=== PATIENT | female | born 1965 | race Caucasian/White ===

== ENCOUNTER 2022-02-24 20:57 | Inpatient (IN) ==
[2022-02-25] MEDS: Acetaminophen 325 MG TABLET PO PRN ×2 (12:09→20:33)
[2022-02-25] MEDS ORDERED: *HR* HYDROcodone/Acet 5/325 mg TABLET PO PRN (14:08)
[2022-02-25] MEDS ORDERED: Naloxone 0.4 MG/ML INJ IVP PRN (14:08)
[2022-02-25] MEDS ORDERED: Ipratropium/Albuterol Neb 3 ML IH PRN (14:57)
[2022-02-25] MEDS ORDERED: Dextrose Gel 15 GM/37.5 ML TUBE PO PRN ×2 (14:59)
[2022-02-25] MEDS ORDERED: D5% in Water 1,000 ML IVC PRN (14:59)
[2022-02-25] MEDS ORDERED: *HR* Dextrose 50 % in Water (Syg) 50 ML SYRINGE IVP PRN (14:59)
[2022-02-25] MEDS ORDERED: Perflutren Lipid Microsphere 1.3 ML in 0.9 % Sodium Chloride 8.7 ML IVP PRN (15:09)
[2022-02-25] MEDS: Vancomycin 2,000 MG/520 ML IV.SOLN IVPB SCH (15:51)
[2022-02-25] MEDS: Piperacillin/Tazobactam 3.375 GM in 0.9 % Sodium Chloride Mini Bag 100 ML IVPB SCH ×2 (15:52→23:33)
[2022-02-25 16:29] LABS: Basophils # 0.1 K/mcL (0.0-0.2); Basophils % 0.4 %; Eosinophils % 0.1 %; Hematocrit 36.8 % (35.3-44.9); Hemoglobin 10.8 g/dL (11.5-15.4); Immature Granulocytes % 0.4 % (0-4); Lymphocytes # 0.8 K/mcL (0.6-4.6); Lymphocytes % 5.5 %; Mean Corpuscular HGB Conc 29.3 g/dL (31.6-35.5); Mean Corpuscular Hemoglobin 28.1 pg (28.0-33.3); Mean Corpuscular Volume 95.6 fL (83.0-100.0); Mean Platelet Volume 11.9 fL (9.4-12.4); Monocytes # 0.5 K/mcL (0.0-1.3); Monocytes % 3.6 %; Neutrophils # 13.1 K/mcL (1.6-8.9); Platelet Count 158 K/mcL (140-400); Red Blood Count 3.85 M/mcL (3.82-4.97); Red Cell Distribution Width 16.5 % (11.5-14.5); White Blood Count 14.5 K/mcL (4.3-11.1)
[2022-02-25 16:59] LABS: Alanine Aminotransferase 36 Units/L (7-52); Albumin 3.3 g/dL (3.5-5.7); Albumin/Globulin Ratio 1.1 (1.1-2.2); Alkaline Phosphatase 64 Units/L (34-104); Aspartate Amino Transferase 37 Units/L (13-39); BUN/Creatinine Ratio 29 (6-26); Bilirubin,Total 1.1 mg/dL (0.3-1.0); Blood Urea Nitrogen 22 mg/dL (6-20); Calcium 9.3 mg/dL (8.6-10.3); Carbon Dioxide 40 mEq/L (23-29); Chloride 96 mEq/L (98-107); Globulin 2.9 g/dL (2.4-3.5); Glucose 193 mg/dL (70-105); Osmolality,Calculated 299 (280-300); Potassium 3.6 mEq/L (3.5-5.1); Sodium 140 mEq/L (136-145); Total Protein 6.2 g/dL (6.4-8.9); eGFR For African Americans > 60 (> 60); eGFR For Non-African Americans > 60 (> 60)
[2022-02-25] MEDS: Insulin LISPRO 300 UNITS/3 ML VIAL SUBQ SCH ×2 (17:12→20:34)
[2022-02-25] MEDS ORDERED: Warfarin perPT PO PRN (18:00)
[2022-02-25 18:03] LABS: INR 1.6; Prothrombin Time 18.1 Seconds (9.4-12.1)
[2022-02-25] MEDS ORDERED: *HR* Warfarin 3 MG TABLET PO ONE (19:45)
[2022-02-25] MEDS: Insulin DETEMIR 100 UNIT/ML X5UNITS SUBQ SCH (20:34)
[2022-02-26 02:55] LABS: Basophils % 0.4 %; Lymphocytes % 6.2 %; Monocytes % 4.9 %
[2022-02-26 02:57] LABS: Basophils # 0.1 K/mcL (0.0-0.2); Eosinophils # 0.1 K/mcL (0.0-0.6); Eosinophils % 0.8 %; Hematocrit 37.8 % (35.3-44.9); Hemoglobin 10.9 g/dL (11.5-15.4); Immature Granulocytes % 0.4 % (0-4); Immature Platelets 16.4 % (1.1-6.1); Lymphocytes # 0.8 K/mcL (0.6-4.6); Mean Corpuscular HGB Conc 28.8 g/dL (31.6-35.5); Mean Corpuscular Hemoglobin 28.2 pg (28.0-33.3); Mean Corpuscular Volume 97.7 fL (83.0-100.0); Mean Platelet Volume 12.1 fL (9.4-12.4); Monocytes # 0.7 K/mcL (0.0-1.3); Neutrophils # 11.9 K/mcL (1.6-8.9); Platelet Count 144 K/mcL (140-400); Red Blood Count 3.87 M/mcL (3.82-4.97); Red Cell Distribution Width 16.4 % (11.5-14.5); Segmented Neutrophils % 87.3 %; White Blood Count 13.6 K/mcL (4.3-11.1)
[2022-02-26 03:07] LABS: INR 1.4; Prothrombin Time 16.1 Seconds (9.4-12.1)
[2022-02-26 03:18] LABS: Alanine Aminotransferase 33 Units/L (7-52); Albumin 3.1 g/dL (3.5-5.7); Alkaline Phosphatase 64 Units/L (34-104); Aspartate Amino Transferase 33 Units/L (13-39); BUN/Creatinine Ratio 24 (6-26); Bilirubin,Total 0.9 mg/dL (0.3-1.0); Blood Urea Nitrogen 21 mg/dL (6-20); Calcium 9.1 mg/dL (8.6-10.3); Carbon Dioxide 38 mEq/L (23-29); Chloride 96 mEq/L (98-107); Globulin 3.2 g/dL (2.4-3.5); Glucose 178 mg/dL (70-105); Osmolality,Calculated 297 (280-300); Potassium 3.7 mEq/L (3.5-5.1); Sodium 140 mEq/L (136-145); Total Protein 6.3 g/dL (6.4-8.9); eGFR For African Americans > 60 (> 60); eGFR For Non-African Americans > 60 (> 60)
[2022-02-26] MEDS: Vancomycin 2,000 MG/520 ML IV.SOLN IVPB SCH ×2 (03:25→15:33)
[2022-02-26] MEDS ORDERED: Fluticasone Propionate Nasal 50 MCG/SPRAY BOTTLE NS PRN (07:54)
[2022-02-26 09:12] LABS: C-Reactive Protein > 300 mg/L (Less than 10)
[2022-02-26] MEDS: Insulin LISPRO 300 UNITS/3 ML VIAL SUBQ SCH ×4 (10:14→20:38)
[2022-02-26] MEDS: Cholecalciferol (D-3) 1,000 UNIT (25MCG) TABLET PO SCH (10:16)
[2022-02-26] MEDS: Cyanocobalamin (B-12) 1,000 MCG TABLET PO SCH (10:17)
[2022-02-26] MEDS: Gabapentin 300 MG CAPSULE PO SCH (10:17)
[2022-02-26] MEDS: Torsemide 20 MG TABLET PO SCH (10:17)
[2022-02-26] MEDS: Piperacillin/Tazobactam 3.375 GM in 0.9 % Sodium Chloride Mini Bag 100 ML IVPB SCH ×3 (10:18→23:17)
[2022-02-26] MEDS: Budesonide/Formoterol 160/4.5 1 PUFF INH IH SCH ×2 (10:49→19:54)
[2022-02-26] MEDS: Acetaminophen 325 MG TABLET PO PRN (17:44)
[2022-02-26] MEDS ORDERED: *HR* Warfarin 3 MG TABLET PO ONE (18:00)
[2022-02-26] MEDS: Insulin DETEMIR 100 UNIT/ML X5UNITS SUBQ SCH (20:38)
[2022-02-27] MEDS: Vancomycin 2,000 MG/520 ML IV.SOLN IVPB SCH (03:05)
[2022-02-27 03:28] LABS: Basophils % 0.6 %; Immature Granulocytes % 0.5 % (0-4)
[2022-02-27 03:30] LABS: Basophils # 0.1 K/mcL (0.0-0.2); Eosinophils # 0.2 K/mcL (0.0-0.6); Eosinophils % 1.9 %; Hematocrit 40.8 % (35.3-44.9); Hemoglobin 11.5 g/dL (11.5-15.4); Lymphocytes # 0.6 K/mcL (0.6-4.6); Mean Corpuscular HGB Conc 28.2 g/dL (31.6-35.5); Mean Corpuscular Volume 99.5 fL (83.0-100.0); Monocytes # 0.6 K/mcL (0.0-1.3); Monocytes % 6.3 %; Neutrophils # 8.2 K/mcL (1.6-8.9); Red Cell Distribution Width 16.2 % (11.5-14.5); Segmented Neutrophils % 84.7 %; White Blood Count 9.7 K/mcL (4.3-11.1)
[2022-02-27 04:52] LABS: BUN/Creatinine Ratio 24 (6-26); Blood Urea Nitrogen 21 mg/dL (6-20); Calcium 9.3 mg/dL (8.6-10.3); Carbon Dioxide 28 mEq/L (23-29); Chloride 97 mEq/L (98-107); Glucose 213 mg/dL (70-105); Magnesium 1.8 mg/dL (1.6-2.6); Osmolality,Calculated 295 (280-300); Phosphorous 2.8 mg/dL (2.7-4.5); Potassium 4.4 mEq/L (3.5-5.1); Sodium 138 mEq/L (136-145); eGFR For African Americans > 60 (> 60); eGFR For Non-African Americans > 60 (> 60)
[2022-02-27 06:05] LABS: Hypochromasia Present (Not Present)
[2022-02-27 06:13] LABS: Mean Platelet Volume 10.6 fL (9.4-12.4)
[2022-02-27 06:17] LABS: INR 1.7; Prothrombin Time 19.4 Seconds (9.4-12.1)
[2022-02-27] MEDS: Budesonide/Formoterol 160/4.5 1 PUFF INH IH SCH ×2 (07:12→20:27)
[2022-02-27] MEDS: Gabapentin 300 MG CAPSULE PO SCH (10:18)
[2022-02-27] MEDS: Torsemide 20 MG TABLET PO SCH (10:19)
[2022-02-27] MEDS: Cholecalciferol (D-3) 1,000 UNIT (25MCG) TABLET PO SCH (10:19)
[2022-02-27] MEDS: Cyanocobalamin (B-12) 1,000 MCG TABLET PO SCH (10:19)
[2022-02-27] MEDS: Insulin LISPRO 300 UNITS/3 ML VIAL SUBQ SCH ×4 (11:14→20:59)
[2022-02-27] MEDS: Piperacillin/Tazobactam 3.375 GM in 0.9 % Sodium Chloride Mini Bag 100 ML IVPB SCH ×2 (12:28→20:49)
[2022-02-27] MEDS ORDERED: *HR* Warfarin 3 MG TABLET PO ONE (18:00)
[2022-02-27] MEDS: Insulin DETEMIR 100 UNIT/ML X5UNITS SUBQ SCH (20:50)
[2022-02-28] MEDS ORDERED: Vancomycin 1,750 MG/517.5 ML IV.SOLN IVPB SCH (03:00)
[2022-02-28] MEDS: Piperacillin/Tazobactam 3.375 GM in 0.9 % Sodium Chloride Mini Bag 100 ML IVPB SCH (05:42)
[2022-02-28] MEDS: Doxycycline 100 MG CAPSULE PO SCH ×2 (07:48→21:00)
[2022-02-28] MEDS: Insulin LISPRO 300 UNITS/3 ML VIAL SUBQ SCH ×4 (07:48→20:59)
[2022-02-28] MEDS: Cyanocobalamin (B-12) 1,000 MCG TABLET PO SCH (07:48)
[2022-02-28] MEDS: Torsemide 20 MG TABLET PO SCH (07:48)
[2022-02-28] MEDS: Cholecalciferol (D-3) 1,000 UNIT (25MCG) TABLET PO SCH (07:48)
[2022-02-28] MEDS: Gabapentin 300 MG CAPSULE PO SCH (07:48)
[2022-02-28] MEDS: Budesonide/Formoterol 160/4.5 1 PUFF INH IH SCH ×2 (08:14→21:48)
[2022-02-28 08:40] LABS: ABG Base Excess 14 mEq/L (-2 to 3); ABG HCO3 44 mEq/L (21-27); ABG Oxygen Saturation 95 % (95-98); ABG PCO2 96 mmHg (35-45); ABG PH 7.27 pH Units (7.32-7.45); ABG PO2 95 mmHg (85-104); ABG TCO2 47 mEq/L (20-26); Blood Gas Modality AVAPS; Blood Gas VT 500 cc
[2022-02-28 10:14] LABS: ABG Base Excess 10 mEq/L (-2 to 3); ABG HCO3 40 mEq/L (21-27); ABG Oxygen Saturation 95 % (95-98); ABG PCO2 94 mmHg (35-45); ABG PH 7.24 pH Units (7.32-7.45); ABG PO2 98 mmHg (85-104); ABG TCO2 43 mEq/L (20-26); Blood Gas Modality AVAPS; Blood Gas VT 500 cc
[2022-02-28 13:32] LABS: ABG Base Excess 13 mEq/L (-2 to 3); ABG HCO3 44 mEq/L (21-27); ABG Oxygen Saturation 90 % (95-98); ABG PCO2 100 mmHg (35-45); ABG PH 7.25 pH Units (7.32-7.45); ABG PO2 73 mmHg (85-104); ABG TCO2 47 mEq/L (20-26); Blood Gas Modality AVAPS; Blood Gas VT 500 cc
[2022-02-28 13:48] LABS: Mean Corpuscular Hemoglobin 27.7 pg (28.0-33.3)
[2022-02-28 13:49] LABS: Eosinophils # 0.1 K/mcL (0.0-0.6); Hematocrit 35.7 % (35.3-44.9); Mean Corpuscular Volume 98.9 fL (83.0-100.0); Mean Platelet Volume 11.1 fL (9.4-12.4); Platelet Count 177 K/mcL (140-400); Red Blood Count 3.61 M/mcL (3.82-4.97); White Blood Count 6.4 K/mcL (4.3-11.1)
[2022-02-28 13:55] LABS: INR 2.2; Prothrombin Time 24.4 Seconds (9.4-12.1)
[2022-02-28 14:07] LABS: BUN/Creatinine Ratio 29 (6-26); Blood Urea Nitrogen 19 mg/dL (6-20); C-Reactive Protein 165 mg/L (Less than 10); Calcium 9.2 mg/dL (8.6-10.3); Carbon Dioxide 42 mEq/L (23-29); Chloride 98 mEq/L (98-107); Glucose 203 mg/dL (70-105); Magnesium 1.7 mg/dL (1.6-2.6); Osmolality,Calculated 302 (280-300); Phosphorous 2.5 mg/dL (2.7-4.5); Potassium 4.2 mEq/L (3.5-5.1); Sodium 142 mEq/L (136-145); eGFR For African Americans > 60 (> 60); eGFR For Non-African Americans > 60 (> 60)
[2022-02-28 16:04] LABS: Basophils # 0.3 K/mcL (0.0-0.2); Lymphocytes # 0.1 K/mcL (0.6-4.6); Monocytes # 0.9 K/mcL (0.0-1.3)
[2022-02-28 16:11] LABS: Anisocytosis 1+ (Not Present); Hypochromasia Present (Not Present); Platelet Clumps Few (Not Present); Platelet Estimate Normal (Normal)
[2022-02-28 16:12] LABS: Stomatocytes 1+ (Not Present)
[2022-02-28] MEDS: Acetaminophen 325 MG TABLET PO PRN (17:48)
[2022-02-28] MEDS ORDERED: *HR* Warfarin 4 MG TABLET PO ONE (18:00)
[2022-02-28] MEDS: Insulin DETEMIR 100 UNIT/ML X5UNITS SUBQ SCH (20:59)
[2022-03-01 02:14] LABS: Red Cell Distribution Width 15.9 % (11.5-14.5)
[2022-03-01 02:16] LABS: Basophils # 0.1 K/mcL (0.0-0.2); Basophils % 1.2 %; Eosinophils # 0.1 K/mcL (0.0-0.6); Eosinophils % 1.9 %; Hematocrit 34.8 % (35.3-44.9); Hemoglobin 9.9 g/dL (11.5-15.4); Immature Granulocytes % 0.7 % (0-4); Lymphocytes # 0.6 K/mcL (0.6-4.6); Lymphocytes % 8.3 %; Mean Corpuscular HGB Conc 28.4 g/dL (31.6-35.5); Mean Corpuscular Hemoglobin 28.5 pg (28.0-33.3); Mean Corpuscular Volume 100.3 fL (83.0-100.0); Monocytes # 1.2 K/mcL (0.0-1.3); Monocytes % 16.7 %; Neutrophils # 4.9 K/mcL (1.6-8.9); Red Blood Count 3.47 M/mcL (3.82-4.97); Segmented Neutrophils % 71.2 %; White Blood Count 6.9 K/mcL (4.3-11.1)
[2022-03-01 02:21] LABS: INR 2.6; Prothrombin Time 29.1 Seconds (9.4-12.1)
[2022-03-01 02:35] LABS: BUN/Creatinine Ratio 36 (6-26); Blood Urea Nitrogen 20 mg/dL (6-20); Calcium 9.3 mg/dL (8.6-10.3); Carbon Dioxide 41 mEq/L (23-29); Chloride 99 mEq/L (98-107); Glucose 206 mg/dL (70-105); Magnesium 1.7 mg/dL (1.6-2.6); Osmolality,Calculated 305 (280-300); Potassium 4.2 mEq/L (3.5-5.1); Sodium 143 mEq/L (136-145); eGFR For African Americans > 60 (> 60); eGFR For Non-African Americans > 60 (> 60)
[2022-03-01 03:18] LABS: Mean Platelet Volume 10.2 fL (9.4-12.4)
[2022-03-01] MEDS: Vancomycin 2,000 MG/520 ML IV.SOLN IVPB SCH (04:36)
[2022-03-01] MEDS: Piperacillin/Tazobactam 3.375 GM in 0.9 % Sodium Chloride Mini Bag 100 ML IVPB SCH (04:36)
[2022-03-01] MEDS: Torsemide 20 MG TABLET PO SCH (07:31)
[2022-03-01] MEDS: Insulin LISPRO 300 UNITS/3 ML VIAL SUBQ SCH ×4 (07:31→20:11)
[2022-03-01] MEDS: Cyanocobalamin (B-12) 1,000 MCG TABLET PO SCH (07:31)
[2022-03-01] MEDS: Doxycycline 100 MG CAPSULE PO SCH ×2 (07:31→20:10)
[2022-03-01] MEDS: Cholecalciferol (D-3) 1,000 UNIT (25MCG) TABLET PO SCH (07:31)
[2022-03-01] MEDS: Gabapentin 300 MG CAPSULE PO SCH (07:31)
[2022-03-01] MEDS: Budesonide/Formoterol 160/4.5 1 PUFF INH IH SCH ×2 (10:32→20:51)
[2022-03-01] MEDS ORDERED: *HR* Warfarin 4 MG TABLET PO ONE (18:00)
[2022-03-01] MEDS: Insulin DETEMIR 100 UNIT/ML X5UNITS SUBQ SCH (20:10)
[2022-03-02 04:08] VITALS: TEMP 98.2
[2022-03-02 04:50] LABS: INR 3.2; Prothrombin Time 35.8 Seconds (9.4-12.1)
[2022-03-02 07:00] VITALS: BP 164/59; PULSE 81
[2022-03-02] MEDS: Cholecalciferol (D-3) 1,000 UNIT (25MCG) TABLET PO SCH (07:33)
[2022-03-02] MEDS: Gabapentin 300 MG CAPSULE PO SCH (07:33)
[2022-03-02] MEDS: Torsemide 20 MG TABLET PO SCH (07:33)
[2022-03-02] MEDS: Doxycycline 100 MG CAPSULE PO SCH (07:33)
[2022-03-02] MEDS: Cyanocobalamin (B-12) 1,000 MCG TABLET PO SCH (07:33)
[2022-03-02] MEDS: Acetaminophen 325 MG TABLET PO PRN (07:38)
[2022-03-02] MEDS: Insulin LISPRO 300 UNITS/3 ML VIAL SUBQ SCH (09:23)
[2022-03-02] MEDS: Budesonide/Formoterol 160/4.5 1 PUFF INH IH SCH (09:32)
[2022-03-02 10:02] VITALS: O2SAT 89
[2022-03-02] MEDS ORDERED: *HR* Warfarin 2.5 MG TABLET PO ONE (18:00)
== END 2022-03-02 10:58 | disposition home health service (06) | DRG 871 ==
LOC: 3NENU → SUATTDRO 02-25 10:51
PROVIDERS: ADMIT Internal Medicine; ATTEND Internal Medicine